=== PATIENT | female | born 1980 | race Caucasian/White ===

== ENCOUNTER 2022-08-27 10:46 | Emergency (ER) | payer OTHER, SELFPAY ==
[2022-08-27 11:34] VITALS: BP 118/79; PULSE 92; RESP 16; TEMP 37.1; O2SAT 98; BMI 24.2
--- NOTE | 2022-08-27 11:57 | ED_ITS ---
HPI - General Adult General Chief complaint: Jaw Injury/Pain Stated complaint: RT jaw swollen Time Seen by Provider: 08/27/22 11:47 History of Present Illness HPI narrative: Patient is a 41-year-old female has right cheek swelling. She is here with her granddaughter just was born, her daughter is doing well going home today. She has had a couple days of swelling. She has had saliva all stone in the past as well. She does not have fever does not have neck pain did have a look good amount of pain last night had trouble sleeping it is better today. Related Data Home Medications Medication Instructions Recorded Confirmed dextroamphetamine-amphetamine ER 20 mg PO DAILY 08/27/22 08/27/22 20 mg 24hr capsule,extend release (Adderall XR) naproxen 500 mg tablet 500 mg PO BID-TID PRN 08/27/22 08/27/22 omeprazole 20 mg capsule,delayed 20 mg PO DAILY 08/27/22 08/27/22 release Previous Rx's Medication Instructions Recorded amoxicillin 875 mg-potassium 1 tab PO BID #14 tabs 08/27/22 clavulanate 125 mg tablet ketorolac 10 mg tablet 10 mg PO Q8H PRN pain 2 days #7 08/27/22 tabs Allergies Allergy/AdvReac Type Severity Reaction Status Date / Time codeine Allergy Severe Rash Verified 08/27/22 11:32 morphine Allergy Severe Rash Verified 08/27/22 11:32 Review of Systems Status of ROS: Reports: 6 or more systems reviewed and unremarkable except as noted in History and below PFSH PFS Social History Smoking Status: Former smoker Do you use any of these nicotine containing products: Vaping Products Second hand tobacco smoke exposure: No How often do you have a drink containing alcohol: 2-4 times a month How many standard drinks containing alcohol do you have on a typical day: 3 or 4 AUDIT-C Alcohol total score: 3 Non-prescribed substance use: marijuana (any form) service: No Exam Narrative: Exam Narrative: Objective: Patient's vital signs look unremarkable In general she is no apparent distress She has got right vehicle swelling and mild redness slight warmth, no real submandibular findings or tenderness Neck is supple Next rest of HEENT is unremarkable. Const: Vital Signs, click to edit/add: Vital Signs - 24 hr 08/27/22 11:34 Temperature 98.7 F Pulse Rate [Pulse Oximeter] 92 Respiratory Rate 16 Blood Pressure [Ri ght Upper Arm] 118/79 Pulse Oximetry 98 Oxygen Delivery Me thod Room Air Course Vital Signs Vital signs: Initial Vital Signs Temperature 98.7 F 08/27/22 11:34 Temperature Source Temporal Artery Scan 08/27/22 11:34 Pulse Rate 92 08/27/22 11:34 Pulse Rhythm Regular 08/27/22 11:34 Pulse Strength 3+ Normal 08/27/22 11:34 Respiratory Rate 16 08/27/22 11:34 Blood Pressure 118/79 08/27/22 11:34 Blood Pressure Mean 92 08/27/22 11:34 Pulse Oximetry 98 08/27/22 11:34 Oxygen Delivery Method Room Air 08/27/22 11:34 Vital Signs Temperature 98.7 F 08/27/22 11:34 Pulse Rate 92 08/27/22 11:34 Respiratory Rate 16 08/27/22 11:34 Blood Pressure 118/79 08/27/22 11:34 Pulse Oximetry 98 08/27/22 11:34 Oxygen Delivery Method Room Air 08/27/22 11:34 Temperature 98.7 F 08/27/22 11:34 Pulse Rate 92 08/27/22 11:34 Respiratory Rate 16 08/27/22 11:34 Blood Pressure 118/79 08/27/22 11:34 Pulse Oximetry 98 08/27/22 11:34 Oxygen Delivery Method Room Air 08/27/22 11:34 Medical Decision Making MDM Narrative Medical decision making narrative: Patient has a history of a saliva all stone, at this point I think she has more of a vehicle cellulitis. She has no allergies to medicines other than codeine and morphine. Will give her Toradol IM and Rocephin IM followed by Augmentin orally b.i.d. x7 days and Toradol orally. Warm pack, recheck with primary care in next 2-3 days not improving return sooner problems or concerns. Also on the case this is be a salivary gland obstruction then lemon drops would be utilized regularly thanks Discharge Plan Discharge Clinical Impression: Cellulitis of cheek Patient Disposition: Home, Self-Care Condition: Stable Instructions: Cellulitis (ED) Additional Instructions: Warm pack the cheek regularly, lemon drops, Augmentin 875 b.i.d. starting today x7 days, Toradol as needed 3 times a day, may take Tylenol as well. Recheck with primary care in the next 2 3 days not fully resolve, return to ED sooner problems or concerns Activity Level: Light activity Discharge Diet: Regular Prescriptions: New ketorolac 10 mg tablet 10 mg PO Q8H PRN (Reason: pain) 2 Days Qty: 7 0RF amoxicillin-pot clavulanate 875-125 mg tablet 1 tab PO BID Qty: 14 0RF No Action naproxen 500 mg tablet 500 mg PO BID-TID PRN dextroamphetamine-amphetamine [Adderall XR] 20 mg capsule,extended release 24hr 20 mg PO DAILY omeprazole 20 mg capsule,delayed release(DR/EC) 20 mg PO DAILY Stand Alone Forms: Properati Info Instructions
[2022-08-27] MEDS: cefTRIAXone 1 GM VIAL IM (12:11)
[2022-08-27] MEDS: KETOROLAC 30 MG/ML inj 60 MG IM (12:12)
[2022-08-27] MEDS: LIDOCAINE 1% 5 ml (pf) 5 ML VIAL 2.1 ML IM (12:12)
== END 2022-08-27 13:53 | disposition home or self-care (01) ==
PROVIDERS: Emergency Provider Family Medicine
DX: L03.211 Cellulitis of face (principal)
CPT/HCPCS: 96372; 99283; J0696; J1885